=== PATIENT | female | born 1985 | race Asian ===

== ENCOUNTER 2018-12-01 22:15 | Observation (INO) | payer OTHER ==
[~2018-12-01] VITALS: Ht 160 cm; Wt 68.0 kg
== END 2018-12-01 23:10 | disposition home or self-care (01) ==
LOC: SPU 22:15
PROVIDERS: ADMIT Specialist; ATTEND Specialist
DX: O42.913 Preterm premature rupture of membranes, unspecified as to length of time between rupture and onset of labor, third trimester (principal); Z3A.34 34 weeks gestation of pregnancy
CPT/HCPCS: 81002; G0378

== ENCOUNTER 2019-01-02 19:10 | Inpatient (IN) | payer OTHER ==
[~2019-01-02] VITALS: Ht 160 cm; Wt 70.3 kg
[2019-01-02] MEDS ORDERED: OXYTOCIN/0.9 % SODIUM CHLORIDE 1,000 ML IV SCH (20:33)
[2019-01-02] MEDS ORDERED: NALBUPHINE HCL 10 MG/ML AMP IVP PRN (20:45)
[2019-01-02] MEDS ORDERED: TERBUTALINE SULFATE 1 MG/ML VIAL SUBCUT ONE (20:45)
[2019-01-02 21:05] LABS: BASOPHILS % (AUTO) 0.2 % (0.0-2.0); EOSINOPHILS % (AUTO) 0.5 % (0.0-4.0); HEMATOCRIT 31.4 % (36-48); HEMOGLOBIN 10.9 g/dL (12.0-16.0); LYMPHOCYTES # (AUTO) 1.5 K/uL (1.0-5.5); LYMPHOCYTES % (AUTO) 15.2 % (20.5-51.5); MEAN CORPUSCULAR HEMOGLOBIN 33 pg (27-31); MEAN CORPUSCULAR HGB CONC 35 % (32-36); MEAN CORPUSCULAR VOLUME 97 fL (79.0-98.0); MONOCYTES # (AUTO) 0.9 K/uL (0.0-1.0); MONOCYTES % (AUTO) 9.4 % (1.7-9.3); NEUTROPHILS # (AUTO) 7.3 K/uL (1.8-7.7); NEUTROPHILS % (AUTO) 74.7 % (40.0-70.0); PLATELET COUNT (AUTO) 209 K/uL (130-430); RED BLOOD CELL COUNT(AUTO) 3.26 MIL/uL (4.2-6.2); RED CELL DISTRIBUTION WIDTH 12.8 % (9.0-15.0); WHITE BLOOD COUNT (AUTO) 9.7 K/uL (4.8-10.8)
[2019-01-02] MEDS: LR 1,000 ML IV SCH ×2 (21:20→23:55)
[2019-01-02] MEDS ORDERED: DINOPROSTONE 10 MG SUPP VG SCH (22:10)
[2019-01-02 22:11] VITALS: BP_SYST 89
[2019-01-02] MEDS ORDERED: ROPIVACAINE HCL/PF 0.2% 100 ML ONE (23:58)
[2019-01-02] MEDS ORDERED: fentaNYL CITRATE/PF 100 MCG/2 ML AMP ONE (23:58)
[2019-01-03] MEDS ORDERED: LR 500 ML IV ONE (00:22)
[2019-01-03] MEDS ORDERED: FENT2mCg/mL-ROPIVA0.2%/NS EPID 100 ML EP SCH (00:30)
[2019-01-03] MEDS: LR 1,000 ML IV SCH ×3 (01:38→13:45)
[2019-01-03] MEDS ORDERED: ROPIVACAINE HCL/PF 0.2% 100 ML ONE ×2 (05:56→12:13)
[2019-01-03] MEDS ORDERED: IBUPROFEN 600 MG TABLET ONE (18:55)
[2019-01-03] MEDS ORDERED: SENNOSIDES/DOCUSATE SODIUM 1 TAB TABLET(SENOKOT-S) PO PRN (19:15)
[2019-01-03] MEDS ORDERED: DOCUSATE SODIUM 100 MG CAPSULE PO PRN (19:15)
[2019-01-03] MEDS ORDERED: MEASLES,MUMPS&RUBELLA VACC/PF 12500 UNIT/0.5 ML VIAL SUBQ PRN (19:15)
[2019-01-03] MEDS ORDERED: LANOLIN 7 GM OINT. TP PRN (19:15)
[2019-01-03] MEDS ORDERED: WITCH HAZEL LEAF 1 MED.PAD MED.PAD TP PRN (19:15)
[2019-01-03] MEDS ORDERED: OXYTOCIN/0.9 % SODIUM CHLORIDE 1,000 ML IV ONE (19:15)
[2019-01-03] MEDS ORDERED: DIPH-TET-PERTUS Vaccine 0.5 ML VIAL (ADACEL) I.M. PRN (19:15)
[2019-01-03] MEDS ORDERED: ANUSOL 1 EA SUPP.RECT (PREPARATION H) RC PRN (19:15)
[2019-01-03] MEDS ORDERED: DERMOPLAST SPRAY TP PRN (19:15)
[2019-01-03] MEDS ORDERED: IBUPROFEN 600 MG TABLET PO ONE (20:00)
[2019-01-03] MEDS ORDERED: TEMAZEPAM 15 MG CAPSULE PO PRN (21:00)
[2019-01-04] MEDS: IBUPROFEN 600 MG TABLET PO SCH ×4 (00:55→18:31)
[2019-01-04] MEDS ORDERED: OXYCODONE/ACETAMINOPHEN 5-325 TABLET PO PRN (04:00)
[2019-01-04] MEDS ORDERED: MEPERIDINE HCL/PF 100 MG/ML AMP IM PRN (04:00)
[2019-01-04 07:22] LABS: BASOPHILS # (AUTO) 0.1 K/uL (0.0-0.2); BASOPHILS % (AUTO) 0.4 % (0.0-2.0); EOSINOPHILS % (AUTO) 0.3 % (0.0-4.0); HEMATOCRIT 31.5 % (36-48); HEMOGLOBIN 10.9 g/dL (12.0-16.0); LYMPHOCYTES # (AUTO) 1.7 K/uL (1.0-5.5); LYMPHOCYTES % (AUTO) 13.8 % (20.5-51.5); MEAN CORPUSCULAR HEMOGLOBIN 33 pg (27-31); MEAN CORPUSCULAR HGB CONC 35 % (32-36); MEAN CORPUSCULAR VOLUME 96 fL (79.0-98.0); MONOCYTES # (AUTO) 0.8 K/uL (0.0-1.0); MONOCYTES % (AUTO) 6.8 % (1.7-9.3); NEUTROPHILS # (AUTO) 9.7 K/uL (1.8-7.7); NEUTROPHILS % (AUTO) 78.7 % (40.0-70.0); PLATELET COUNT (AUTO) 198 K/uL (130-430); RED BLOOD CELL COUNT(AUTO) 3.28 MIL/uL (4.2-6.2); RED CELL DISTRIBUTION WIDTH 12.9 % (9.0-15.0); WHITE BLOOD COUNT (AUTO) 12.3 K/uL (4.8-10.8)
[2019-01-05] MEDS: IBUPROFEN 600 MG TABLET PO SCH ×2 (00:31→06:13)
[2019-01-05] MEDS ORDERED: OXYCODONE/ACETAMINOPHEN 5-325 TABLET PO PRN (03:45)
== END 2019-01-05 11:15 | disposition home or self-care (01) | DRG 807 ==
LOC: SPU 19:10
PROVIDERS: ADMIT Specialist; ATTEND Specialist
PROC: 10E0XZZ Delivery of Products of Conception, External Approach (ICD-10-PCS; principal; 2019-01-03)
PROC: 3E0P7VZ Introduction of Hormone into Female Reproductive, Via Natural or Artificial Opening (ICD-10-PCS; 2019-01-03)
PROC: 3E0R3BZ Introduction of Anesthetic Agent into Spinal Canal, Percutaneous Approach (ICD-10-PCS; 2019-01-03)
PROC: 00HU33Z Insertion of Infusion Device into Spinal Canal, Percutaneous Approach (ICD-10-PCS; 2019-01-03)
DX: O69.81X0 Labor and delivery complicated by cord around neck, without compression, not applicable or unspecified (principal); Z37.0 Single live birth; Z3A.39 39 weeks gestation of pregnancy
CPT/HCPCS: 36415; 81002-TC; 85025; 86592; 86886; 86900; 86901; 94760; J2590; J2795; J3010; J7120